=== PATIENT | male | born 2000 | race Caucasian/White ===

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

== ENCOUNTER 2020-03-13 15:48 | Emergency (ER) | payer MEDICAID ==
[2020-03-13 16:16] VITALS: BP 131/80; O2SAT 98
[2020-03-13] MEDS ORDERED: TORAdol 30 mg Injection IV ONE (16:27)
--- NOTE | 2020-03-13 16:30 | ERPHSYRPT ---
- History of Present Illness Time Seen by Provider: 03/13/20 16:20 Historian: patient Patient Subjective Stated Complaint: pt states that it feels like someone is standing on his chest Triage Nursing Assessment: Pt walked into the ER, pt states that upon certain movements it feels as if someone is standing on his chest, vitals wnl, denies pain, pulses normal, doesn't appear to be in any distress Physician History: 19 years old male presented in the ER with chief complaint of chest pain with movements in certain directions since yesterday with progressive worsening with palpation and activity. Patient described this as a dull aching to sharp pain mild to moderate intensity and currently is improved and feels as if he has something standing on him at times. No cough fever chills or shortness of breath reported. Does not smoke. Does not have any history of drug abuse. Currently pain is much improved on its own. Timing/Duration: today, sudden, improved Activities at Onset: activity Quality: dullness, sharpness Location: central Chest Pain Radiation: no radiation Severity of Pain-Max: moderate Severity of Pain-Current: mild Modifying Factors: Improves With: movement, palpation Associated Symptoms: cough, No shortness of breath Prior Chest Pain/Cardiac Workup: no prior chest pain, no prior cardiac workup Nitro Today/Relief: no nitro taken today Aspirin Treatment Today: no aspirin today Allergies/Adverse Reactions: No Known Drug Allergies Allergy (Verified 03/13/20 16:17) Home Medications: Sertraline HCl 100 mg PO DAILY 02/10/18 [History] Hx Tetanus, Diphtheria Vaccination/Date Given: Yes Hx Influenza Vaccination/Date Given: No Hx Pneumococcal Vaccination/Date Given: No Travel Risk - International Travel Have you traveled outside of the country in past 3 weeks: No Have you or anyone close to you been diagnosed with or: No Do your reside in a community with a known COVID-19 case?: Yes If Yes where:: [place] - Coronavirus Screening Has patient experienced Coronavirus symptoms: No - Review of Systems Constitutional: No Symptoms Eyes: No Symptoms Ears, Nose, & Throat: No Symptoms Respiratory: Cough Cardiac: Chest Pain Abdominal/Gastrointestinal: No Symptoms Musculoskeletal: No Symptoms Skin: No Symptoms Neurological: No Symptoms Psychological: No Symptoms Endocrine: No Symptoms Hematologic/Lymphatic: No Symptoms Immunological/Allergic: No Symptoms - Past Medical History Pertinent Past Medical History: Yes Neurological History: No Pertinent History ENT History: No Pertinent History Cardiac History: No Pertinent History Respiratory History: No Pertinent History Endocrine Medical History: No Pertinent History Musculoskeletal History: No Pertinent History GI Medical History: No Pertinent History History: No Pertinent History Psycho-Social History: Depression Male Reproductive Disorders: No Pertinent History - Past Surgical History Past Surgical History: Yes Neuro Surgical History: No Pertinent History Cardiac: No Pertinent History Respiratory: No Pertinent History Gastrointestinal: No Pertinent History Genitourinary: No Pertinent History Musculoskeletal: No Pertinent History Male Surgical History: No Pertinent History Other Surgical History: tendon repair in right pinky - Social History Smoking Status: Never smoker Exposure to second hand smoke: No Drug Use: none Patient Lives Alone: No - Nursing Vital Signs Nursing Vital Signs: Initial Vital Signs Temperature 98.2 F 03/13/20 16:10 Pulse Rate 87 03/13/20 16:10 Respiratory Rate 24 03/13/20 16:10 Blood Pressure 131/80 03/13/20 16:10 O2 Sat by Pulse Oximetry 98 03/13/20 16:10 Pain Scale Pain Intensity 0 - Physical Exam General Appearance: no apparent distress Eye Exam: PERRL/EOMI, eyes nml inspection Ears, Nose, Throat Exam: normal ENT inspection, TMs normal, pharynx normal Neck Exam: normal inspection, non-tender, supple, full range of motion Respiratory Exam: normal breath sounds, chest tenderness (Anterior chest wall), lungs clear, airway intact, No respiratory distress Cardiovascular Exam: regular rate/rhythm, normal heart sounds, normal peripheral pulses Gastrointestinal/Abdomen Exam: soft, normal bowel sounds, No tenderness Back Exam: normal inspection, normal range of motion Neurologic Exam: alert, oriented x 3, cooperative, personal care aid II-XII nml as tested, normal mood/affect Skin Exam: normal color SpO2 Interpretation: normal SpO2: 98 O2 Delivery: Room Air - Course Nursing assessment & vital signs reviewed: Yes EKG Interpreted by Me: RATE (84), Sinus Rhythm, NORMAL AXIS, NORMAL INTERVALS, NORMAL QRS Ordered Tests: Active Orders 24 hr Category Date Time Status Isolation, Initiate & Maintain Q4H Care 03/13/20 16:16 Active CHEST 1 VIEW (PORTABLE) Stat Exams 03/13/20 16:27 Taken CBC W DIFF Stat Lab 03/13/20 16:47 Completed CMP Routine Lab 03/13/20 16:47 Completed TROPONIN Q3H Lab 03/13/20 16:47 Completed TROPONIN Q3H Lab 03/13/20 19:30 Ordered TROPONIN Q3H Lab 03/13/20 22:30 Ordered TROPONIN Q3H Lab 03/14/20 01:30 Ordered TROPONIN Q3H Lab 03/14/20 04:30 Ordered Medication Summary Discontinued Medications Generic Name Dose Route Start Last Admin Trade Name Freq PRN Reason Stop Dose Admin Ketorolac Tromethamine 30 mg 03/13/20 16:27 03/13/20 16:33 Toradol 30 Mg Injection IV 03/13/20 16:28 30 mg STAT ONE Administration Ketorolac Tromethamine Confirm 03/13/20 16:32 Toradol 30 Mg Injection Administered 03/13/20 16:33 Dose 30 mg .ROUTE .[employer]-MED ONE Lab/Rad Data: Laboratory Result Diagrams 03/13/20 16:47 03/13/20 16:47 Laboratory Results 03/13/20 03/13/20 Range/Units 16:47 16:47 WBC 8.5 (4.0-10.5) K/mm3 RBC 5.15 (4.1-5.6) M/mm3 Hgb 14.5 (12.5-18.0) gm/dl Hct 43.9 (42-50) % MCV 85.2 (78-100) fl MCH 28.2 (26-32) pg MCHC 33.0 (32-36) g/dl RDW 14.3 H (11.5-14.0) % Plt Count 299 (150-450) K/mm3 MPV 10.3 (7.5-11.0) fl Gran % 59.5 (36.0-66.0) % Eos # (Auto) 0.30 (0-0.5) Absolute Lymphs (auto) 2.30 (1.0-4.6) Absolute Monos (auto) 0.80 (0.0-1.3) Lymphocytes % 27.0 (24.0-44.0) % Monocytes % 9.4 (0.0-12.0) % Eosinophils % 3.5 (0.00-5.0) % Basophils % 0.6 (0.0-0.4) % Absolute Granulocytes 5.06 (1.4-6.9) Basophils # 0.05 (0-0.4) Sodium 141 (137-145) mmol/L Potassium 3.8 (3.5-5.1) mmol/L Chloride 105 (98-107) mmol/L Carbon Dioxide 28 (22-30) mmol/L Anion Gap 11.6 (5-15) MEQ/L BUN 13 (9-20) mg/dL Creatinine 0.61 L (0.66-1.25) mg/dL Estimated GFR > 60.0 ML/MIN Glucose 99 (74-106) mg/dL Calcium 9.5 (8.4-10.2) mg/dL Total Bilirubin 0.40 (0.2-1.3) mg/dL AST 29 (17-59) U/L ALT 46 (0-50) U/L Alkaline Phosphatase 77 (38-126) U/L Troponin I < 0.012 (0.000-0.034) ng/mL Serum Total Protein 7.5 (6.3-8.2) g/dL Albumin 4.1 (3.5-5.0) g/dL - Progress Progress: improved, re-examined Air Movement: good Progress Note: 03/13/20 18:08 19 years old is evaluated for reproducible chest pain across the anterior wall. EKG is normal sinus rhythm with no acute ST or T wave changes. Negative troponins. Unremarkable work-up. Lungs bilateral clear to auscultation. Chest x-ray did not show any focal consolidation. His pain is more of musculoskeletal and is improved after giving Toradol. He is advised to take Tylenol ibuprofen as needed. Do not think he needs any further work-up. Does not have any sick contact or any other signs of COVID infection. Discussed signs symptoms of worsening needing return to ER which he seems understanding. Stable for discharge. Blood Culture(s) Obtained: No Antibiotics given: No Counseled pt/family regarding: lab results, diagnosis, need for follow-up, rad results - Departure Departure Disposition: Home Clinical Impression: Chest wall pain Condition: Stable Critical Care Time: No Referrals: DICK MULLINS MD [Primary Care Provider] - Follow Up with PCP/3 days Instructions: Atypical Chest Pain, Chest Pain (DC) Additional Instructions: Take Tylenol/ibuprofen as needed. Follow-up with primary care for reevaluation. Return to ER for worsening chest pain, difficulty breathing, fever chills/cough etc.
[2020-03-13] MEDS ORDERED: TORAdol 30 mg Injection ONE (16:32)
[2020-03-13 16:47] LABS: Absolute Neutrophil Ct (ANC) 5.06 (1.4-6.9); BASOPHIL % 0.6 % (0.0-0.4); Basophil (Absolute #) 0.05 (0-0.4); Eosinophil % 3.5 % (0.00-5.0); Hematocrit 43.9 % (42-50); Hemoglobin 14.5 gm/dl (12.5-18.0); Mean Cell Volume 85.2 fl (78-100); Mean Corpuscular Hemoglobin 28.2 pg (26-32); Mean Platelet Volume 10.3 fl (7.5-11.0); Monocytes % 9.4 % (0.0-12.0); Neutrophil % 59.5 % (36.0-66.0); Platelet Count 299 K/mm3 (150-450); Red Blood Count 5.15 M/mm3 (4.1-5.6); Red Cell Distribution Width 14.3 % (11.5-14.0); White Blood Count 8.5 K/mm3 (4.0-10.5)
[2020-03-13 17:12] LABS: ALBUMIN 4.1 g/dL (3.5-5.0); ALKALINE PHOSPHATASE 77 U/L (38-126); ANION GAP 11.6 MEQ/L (5-15); BLOOD UREA NITROGEN 13 mg/dL (9-20); CHLORIDE 105 mmol/L (98-107); Calcium 9.5 mg/dL (8.4-10.2); Carbon Dioxide 28 mmol/L (22-30); Creatinine 1 0.61 mg/dL (0.66-1.25); Glucose 99 mg/dL (74-106); Potassium 3.8 mmol/L (3.5-5.1); SGOT/AST 29 U/L (17-59); SGPT/ALT 46 U/L (0-50); SODIUM 141 mmol/L (137-145); TROPONIN < 0.012 ng/mL (0.000-0.034); Total Protein 7.5 g/dL (6.3-8.2)
[2020-03-13 18:02] VITALS: PULSE 75
--- NOTE | 2020-03-13 19:58 | XRAY ---
Indication: Chest pain and cough. Comparison: None Portable chest demonstrates normal heart, lungs, and bony thorax.
== END 2020-03-13 18:06 | disposition home or self-care (01) ==
LOC: ED 15:48
DX: R07.89 Other chest pain (principal)
CPT/HCPCS: 36000; 36415; 71045; 80053; 84484; 85025; 93005; 96372; 99284; J1885

== ENCOUNTER 2022-04-29 10:35 | Emergency (ER) | payer MEDICAID ==
[2022-04-29] MEDS ORDERED: ZOFRAN ODT 4 MG PO ONE (11:33)
[2022-04-29] MEDS ORDERED: ZOFRAN ODT 4 MG ONE (11:36)
--- NOTE | 2022-04-29 11:38 | ERPHSYRPT ---
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 Physician History: 21 yo wm w N-vomiting since 4:00AM. Pt denies abdominal pain/diarrhea/dysuria/hematuria. He has had a mild AG wo cough/coryza/ST. Timing/Duration: other (4:00AM) Activities at Onset: rest Quality: other (No pain) Pain Radiation: no radiation Severity of Pain-Max: none Severity of Pain-Current: none Modifying Factors: Improves With: vomiting Associated Symptoms: neck pain Previous symptoms: no prior history Allergies/Adverse Reactions: No Known Drug Allergies Allergy (Verified 03/13/20 16:17) Home Medications: Trazodone HCl 100 mg PO HS 04/29/22 [History] Hx Tetanus, Diphtheria Vaccination/Date Given: Yes Hx Influenza Vaccination/Date Given: No Hx Pneumococcal Vaccination/Date Given: No Immunizations Up to Date: Yes Travel Risk - International Travel Have you traveled outside of the country in past 3 weeks: No - Coronavirus Screening Are you exhibiting any of the following symptoms?: No Close contact with a COVID-19 positive Pt in past 14-21 Days: No - Vaccine Status Have you recieved a Covid-19 vaccination: Yes [employer] Representative: Moderna - Vaccination Dates Date of 2cond Vaccination (if applicable): 2020 - Review of Systems Constitutional: No Symptoms Eyes: No Symptoms Ears, Nose, & Throat: No Symptoms Respiratory: No Symptoms Cardiac: No Symptoms Abdominal/Gastrointestinal: No Symptoms, Nausea Genitourinary Symptoms: No Symptoms Musculoskeletal: No Symptoms Skin: No Symptoms Neurological: No Symptoms, Headache Psychological: No Symptoms Endocrine: No Symptoms Hematologic/Lymphatic: No Symptoms Immunological/Allergic: No Symptoms - Past Medical History Pertinent Past Medical History: Yes Neurological History: No Pertinent History ENT History: No Pertinent History Cardiac History: No Pertinent History Respiratory History: No Pertinent History Endocrine Medical History: No Pertinent History Musculoskeletal History: No Pertinent History GI Medical History: No Pertinent History History: No Pertinent History Psycho-Social History: Depression Male Reproductive Disorders: No Pertinent History - Past Surgical History Past Surgical History: Yes Neuro Surgical History: No Pertinent History Cardiac: No Pertinent History Respiratory: No Pertinent History Gastrointestinal: No Pertinent History Genitourinary: No Pertinent History Musculoskeletal: No Pertinent History Male Surgical History: No Pertinent History Other Surgical History: tendon repair in right pinky - Social History Smoking Status: Never smoker Exposure to second hand smoke: No Drug Use: none Patient Lives Alone: No Significant Family History: no pertinent family hx - Nursing Vital Signs Nursing Vital Signs: Initial Vital Signs Temperature 97.1 F 04/29/22 10:50 Pulse Rate 80 04/29/22 10:50 Respiratory Rate 20 04/29/22 10:50 Blood Pressure 150/85 04/29/22 10:50 O2 Sat by Pulse Oximetry 96 04/29/22 10:50 Pain Scale Pain Intensity 4 Hypertensive - Physical Exam General Appearance: no apparent distress Eye Exam: PERRL/EOMI, eyes nml inspection Ears, Nose, Throat Exam: normal ENT inspection, TMs normal, pharynx normal, moist mucous membranes Neck Exam: normal inspection, non-tender, supple, full range of motion, No meningismus, No mass, No Brudzinski, No Kernig's Respiratory Exam: normal breath sounds, lungs clear, airway intact Cardiovascular Exam: regular rate/rhythm, normal heart sounds, normal peripheral pulses, capillary refill <2 sec, No murmur Gastrointestinal/Abdomen Exam: soft, normal bowel sounds, other (Morbidly obese), No tenderness, No distention Back Exam: normal inspection, normal range of motion Extremity Exam: normal inspection, normal range of motion Neurologic Exam: alert, oriented x 3, cooperative, adjudication specialist II-XII nml as tested, normal mood/affect, nml cerebellar function, nml station & gait, sensation nml Skin Exam: normal color, warm, dry Lymphatic Exam: No adenopathy SpO2 Interpretation: normal SpO2: 96 O2 Delivery: Room Air - Course Nursing assessment & vital signs reviewed: Yes Ordered Tests: Medication Summary Discontinued Medications Generic Name Dose Route Start Last Admin Trade Name Freq PRN Reason Stop Dose Admin Ondansetron HCl 8 mg 04/29/22 11:33 04/29/22 11:36 Zofran 4 Mg/Udtablet Orally Disintegrating PO 04/29/22 11:34 8 mg STAT ONE Administration Ondansetron HCl Confirm 04/29/22 11:36 Zofran 4 Mg/Udtablet Orally Disintegrating Administered 04/29/22 11:37 Dose 8 mg .ROUTE .STK-MED ONE Lab/Rad Data: Laboratory Results 04/29/22 Range/Units 11:28 Influenza Type A Ag NEGATIVE (NEGATIVE) Influenza Type B Ag NEGATIVE (NEGATIVE) RSV (PCR) NEGATIVE (Negative) SARS-CoV-2 (PCR) NEGATIVE (NEGATIVE) - Progress Progress: improved Progress Note: 04/29/22 13:02 8mg Zofran ODT/Pt able to hold down fluids wo difficulty. No abdominal pain during stay. 04/29/22 17:24 Counseled pt/family regarding: lab results, diagnosis, need for follow-up - Departure Departure Disposition: Home Clinical Impression: Nausea & vomiting Condition: Stable Critical Care Time: No Referrals: DICK MULLINS MD [Primary Care Provider] - Follow up/PCP as directed Instructions: Nausea and Vomiting, Adult (DC) Additional Instructions: Fluids/Rest Zofran for nausea/vomiting Return to ER for increasing abdominal pain, temperature greater than 100.5, or inability to hold down fluids Forms: Work/School Release Form Prescriptions: Ondansetron ODT 4 MG [Zofran Odt 4 mg] 4 mg PO Q6H PRN PRN #10 tablet PRN Reason: Nausea
[2022-04-29 11:49] VITALS: BP 142/78; PULSE 76
[2022-04-29 12:30] LABS: INFLUENZA A NEGATIVE (NEGATIVE); INFLUENZA B NEGATIVE (NEGATIVE); RESPIRATORY SYNCTIAL VIRUS NEGATIVE (Negative); SARS-CoV-2 Xpert Express NEGATIVE (NEGATIVE)
[2022-04-29 13:06] VITALS: O2SAT 96
== END 2022-04-29 13:14 | disposition home or self-care (01) ==
LOC: ED 10:35
DX: R11.2 Nausea with vomiting, unspecified (principal); R51.9 Headache, unspecified
CPT/HCPCS: 0241U; 99283; Q0162

== ENCOUNTER 2022-08-24 22:25 | Emergency (ER) | payer MEDICAID ==
[2022-08-24 22:41] VITALS: BP 143/89; O2SAT 98
--- NOTE | 2022-08-24 22:56 | ERPHSYRPT ---
- History of Present Illness Time Seen by Provider: 08/24/22 22:40 Source: patient Exam Limitations: no limitations Patient Subjective Stated Complaint: pt states "I started coughing and sore throat yesterday." Triage Nursing Assessment: pt ambulatory to bed by self, pt alert and oriented x3, pt c/o sore throat, cough, nasal congestion since yesterday, pt denies fever, pt is afebrile at this time, lung sounds diminished in lower bilateral lobes posteriorly Physician History: Patient is a 21-year-old male who was complains of sore throat cough with pain, chest pain with a deep breath. The symptoms started yesterday. He denies any fever chills or sweats. He has had some nausea but no vomiting. Timing/Duration: yesterday Cough Quality/Degree: productive cough Possible Cause: occasional episodes Modifying Factors: Improves With: coughing, deep breath Associated Symptoms: chest pain/soreness, cough, shortness of breath, sore throat, No fever, No chills, No nasal congestion, No nasal drainage Allergies/Adverse Reactions: No Known Drug Allergies Allergy (Verified 08/24/22 22:33) Home Medications: Trazodone HCl 100 mg PO HS 04/29/22 [History] Hx Tetanus, Diphtheria Vaccination/Date Given: Yes Hx Influenza Vaccination/Date Given: No Hx Pneumococcal Vaccination/Date Given: No Travel Risk - International Travel Have you traveled outside of the country in past 3 weeks: No - Coronavirus Screening Are you exhibiting any of the following symptoms?: Yes Symptoms: Cough: New Onset Close contact with a COVID-19 positive Pt in past 14-21 Days: No - Vaccine Status Have you recieved a Covid-19 vaccination: Yes 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 - Vaccination Dates Date of 2cond Vaccination (if applicable): 2020 - Review of Systems Constitutional: No Fever, No Chills Eyes: No Symptoms Ears, Nose, & Throat: No Symptoms, Throat Pain, Painful Swallowing Respiratory: Cough, No Dyspnea Cardiac: Chest Pain (Pleuritic), No Edema, No Syncope Abdominal/Gastrointestinal: No Abdominal Pain, No Nausea, No Vomiting, No Diarrhea Genitourinary Symptoms: No Dysuria Musculoskeletal: No Back Pain, No Neck Pain Skin: No Rash Neurological: No Dizziness, No Focal Weakness, No Sensory Changes Psychological: No Symptoms Endocrine: No Symptoms All Other Systems: Reviewed and Negative - Past Medical History Pertinent Past Medical History: Yes Neurological History: No Pertinent History ENT History: No Pertinent History Cardiac History: No Pertinent History Respiratory History: No Pertinent History Endocrine Medical History: No Pertinent History Musculoskeletal History: No Pertinent History GI Medical History: No Pertinent History History: No Pertinent History Psycho-Social History: Depression Male Reproductive Disorders: No Pertinent History - Past Surgical History Past Surgical History: Yes Neuro Surgical History: No Pertinent History Cardiac: No Pertinent History Respiratory: No Pertinent History Gastrointestinal: No Pertinent History Genitourinary: No Pertinent History Musculoskeletal: No Pertinent History Male Surgical History: No Pertinent History Other Surgical History: tendon repair in right pinky - Social History Smoking Status: Former smoker Exposure to second hand smoke: No Drug Use: none Patient Lives Alone: No Significant Family History: no pertinent family hx - Nursing Vital Signs Nursing Vital Signs: Initial Vital Signs Temperature 98.0 F 08/24/22 22:34 Pulse Rate 111 H 08/24/22 22:34 Respiratory Rate 20 08/24/22 22:34 Blood Pressure 143/89 08/24/22 22:34 O2 Sat by Pulse Oximetry 98 08/24/22 22:34 Pain Scale Pain Intensity 3 - Physical Exam General Appearance: mild distress, alert Eye Exam: PERRL/EOMI, eyes nml inspection Ears, Nose, Throat Exam: normal ENT inspection, TMs normal, pharynx normal, moist mucous membranes Neck Exam: normal inspection, non-tender, supple, full range of motion Respiratory Exam: normal breath sounds, lungs clear, No respiratory distress Cardiovascular Exam: regular rate/rhythm, normal heart sounds Gastrointestinal/Abdomen Exam: soft, No tenderness Back Exam: normal inspection, No CVA tenderness, No vertebral tenderness Extremity Exam: normal inspection, normal range of motion Neurologic Exam: alert, oriented x 3, cooperative, normal mood/affect, sensation nml, No motor deficits Skin Exam: normal color, warm, dry, No rash Lymphatic Exam: No adenopathy SpO2: 98 - Course Nursing assessment & vital signs reviewed: Yes - Radiology Exams Chest X-ray Interpretation: Reviewed by me, Negative Ordered Tests: Active Orders 24 hr Category Date Time Status CHEST 1 VIEW (PORTABLE) Stat Exams 08/24/22 22:51 Taken Lab/Rad Data: Laboratory Results 08/24/22 08/24/22 Range/Units 22:40 22:40 Influenza Type A Ag NEGATIVE (NEGATIVE) Influenza Type B Ag NEGATIVE (NEGATIVE) RSV (PCR) NEGATIVE (Negative) SARS-CoV-2 (PCR) POSITIVE A (NEGATIVE) Group A Strep Antibody NOT DETECTED (NEGATIVE) - Progress Progress: unchanged Air Movement: good Blood Culture(s) Obtained: No Antibiotics given: No - Departure Departure Disposition: Home Clinical Impression: COVID Condition: Stable Critical Care Time: No Referrals: DICK MULLINS MD [Primary Care Provider] - Follow up/PCP as directed Instructions: COVID-19 (DC) Prescriptions: Nirmatrelvir/Ritonavir [Paxlovid 2X150 mg-100 mg (Eua)] 1 each PO BID 5 Days #10 tablet
[2022-08-24 23:18] LABS: INFLUENZA A NEGATIVE (NEGATIVE); INFLUENZA B NEGATIVE (NEGATIVE); RESPIRATORY SYNCTIAL VIRUS NEGATIVE (Negative)
[2022-08-24 23:25] LABS: SARS-CoV-2 Xpert Express POSITIVE (NEGATIVE)
[2022-08-24 23:42] VITALS: PULSE 69
--- NOTE | 2022-08-25 08:09 | XRAY ---
Indication: Cough, pleurisy, and sore throat. Comparison: March 13, 2020 Portable chest remains inflated and clear. Heart and mediastinal structures within normal limits. Bony thorax intact. Impression: Continued nonacute chest.
== END 2022-08-24 23:53 | disposition home or self-care (01) ==
LOC: ED 22:25
DX: U07.1 COVID-19 (principal); R05.1 Acute cough; J02.9 Acute pharyngitis, unspecified; R07.89 Other chest pain; R11.0 Nausea; Z79.899 Other long term (current) drug therapy
CPT/HCPCS: 0241U; 71045; 87651; 99283

== ENCOUNTER 2022-09-04 15:29 | Emergency (ER) | payer MEDICAID ==
[2022-09-04] MEDS ORDERED: MORPHINE SULFATE 4 MG INJ IV ONE (15:38)
[2022-09-04] MEDS ORDERED: BABY ASPIRIN 81 MG CHEW PO ONE (15:38)
[2022-09-04] MEDS ORDERED: Sodium Chloride 0.9% 1000 ML 1,000 ML IV SCH (15:45)
[2022-09-04] MEDS ORDERED: Zofran 4 MG/2 ML VIAL ONE (15:51)
[2022-09-04] MEDS ORDERED: BABY ASPIRIN 81 MG CHEW ONE (15:51)
[2022-09-04] MEDS ORDERED: Sodium Chloride 0.9% 1000 ML 1,000 ML ONE (15:52)
[2022-09-04] MEDS ORDERED: MORPHINE SULFATE 4 MG INJ ONE (15:52)
[2022-09-04] MEDS ORDERED: Zofran 4 MG/2 ML VIAL IV ONE (15:56)
[2022-09-04 16:00] LABS: Absolute Neutrophil Ct (ANC) 6.12 x10^3/uL (1.4-6.9); Basophil (Absolute #) 0.05 x10^3/uL (0-0.4); Eosinophil % 1.1 % (0.00-5.0); Eosinophil (Absolute #) 0.11 x10^3/uL (0-0.5); Hematocrit 42.1 % (42-50); Hemoglobin 13.3 g/dL (12.5-18.0); Lymphocyte (Absolute #) 2.79 x10^3/uL (1.0-4.6); Lymphocytes % 28.5 % (24.0-44.0); Mean Cell Volume 86.3 fL (78-100); Mean Corpuscular Hemoglobin 27.3 pg (26-32); Mean Corpuscular Hgb Concent. 31.6 g/dL (32-36); Mean Platelet Volume 10.1 fL (7.5-11.0); Monocyte (Absolute #) 0.68 x10^3/uL (0.0-1.3); Neutrophil % 62.6 % (36.0-66.0); Platelet Count 356 x10^3/uL (150-450); Red Blood Count 4.88 x10^6/uL (4.1-5.6); Red Cell Distribution Width 14.6 % (11.5-14.0); White Blood Count 9.8 x10^3/uL (4.0-10.5)
[2022-09-04 16:17] LABS: D-DIMER QUANTITATIVE 0.3 mg/L (0.0-0.50); INR 1.01 (0.8-3.0); PROTIME 10.7 SECONDS (9.4-12.5); PTT 26.2 SECONDS (25.1-36.5)
[2022-09-04 16:24] LABS: ALBUMIN 4.2 g/dL (3.5-5.0); ALKALINE PHOSPHATASE 94 U/L (38-126); ANION GAP 11.6 MEQ/L (5-15); BLOOD UREA NITROGEN 12 mg/dL (9-20); CHLORIDE 104 mmol/L (98-107); CK-Creatinine Phosphokinase 129 U/L (55-170); Calcium 9.2 mg/dL (8.4-10.2); Carbon Dioxide 27 mmol/L (22-30); Creatinine 1 0.63 mg/dL (0.66-1.25); EST GLOMERULAR FILTRATION RATE > 60.0 ML/MIN; Glucose 82 mg/dL (74-106); NT PRO BNP 32.4 pg/mL (0-450); Potassium 3.9 mmol/L (3.5-5.1); SGOT/AST 35 U/L (17-59); SGPT/ALT 39 U/L (0-50); SODIUM 139 mmol/L (137-145); Total Protein 7.9 g/dL (6.3-8.2)
--- NOTE | 2022-09-04 16:30 | XRAY ---
Indication: Chest pain. Short of breath. Comparison: August 24, 2022 Portable chest again demonstrates normal heart, lungs, and bony thorax.
[2022-09-04 17:13] VITALS: PULSE 79
--- NOTE | 2022-09-04 17:19 | ERPHSYRPT ---
- History of Present Illness Time Seen by Provider: 09/04/22 15:40 Patient Subjective Stated Complaint: Chest pain Triage Nursing Assessment: Patient ambulated back to ED and transferred self to bed. Patient A+O X 3. Patient's skin pink, warm and dry. Patient states he has been having chest pain on and off for the past 3 days. Patient states today he was at work and the pain got bad. Patient complains of chest pain that goes into back sharp pain 05/04. Patient also complains of being lightheaded and nauseated. Physician History: Patient is a 21-year-old male who presents with a complaint of chest pain for 3 days on and off. When he gets bad he also gets a headache. The pain is substernal and goes through to his back is intermittent and is not relieved by nitroglycerin is associated with some shortness of breath and some nausea but no vomiting or sweats. He recently had COVID and was treated with Paxlovid. Risk factors include smoking family history hyperlipidemia and hypertension. He is also under a great deal of stress since he is raising 2 children from his sister who is out of state with a new boyfriend. Timing/Duration: day(s) (3) Activities at Onset: none Quality: fullness, pressure, stabbing Location: substernal Chest Pain Radiation: back Nitro Today/Relief: 0.4 mg x 2, no relief Aspirin Treatment Today: no aspirin today Allergies/Adverse Reactions: No Known Drug Allergies Allergy (Verified 09/04/22 15:34) Home Medications: Trazodone HCl 100 mg PO HS 04/29/22 [History] Hx Tetanus, Diphtheria Vaccination/Date Given: Yes Hx Influenza Vaccination/Date Given: No Hx Pneumococcal Vaccination/Date Given: No Immunizations Up to Date: Yes Travel Risk - International Travel Have you traveled outside of the country in past 3 weeks: No - Coronavirus Screening Are you exhibiting any of the following symptoms?: No Close contact with a COVID-19 positive Pt in past 14-21 Days: No - Vaccine Status Have you recieved a Covid-19 vaccination: Yes 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 - Vaccination Dates Date of 2cond Vaccination (if applicable): 2020 - Review of Systems Constitutional: No Fever, No Chills Eyes: No Symptoms Ears, Nose, & Throat: No Symptoms Respiratory: No Cough, No Dyspnea Cardiac: No Chest Pain, No Edema, No Syncope Abdominal/Gastrointestinal: No Abdominal Pain, No Nausea, No Vomiting, No Diarrhea Genitourinary Symptoms: No Dysuria Musculoskeletal: No Back Pain, No Neck Pain Skin: No Rash Neurological: No Dizziness, No Focal Weakness, No Sensory Changes Psychological: No Symptoms Endocrine: No Symptoms All Other Systems: Reviewed and Negative - Past Medical History Pertinent Past Medical History: Yes Neurological History: No Pertinent History ENT History: No Pertinent History Cardiac History: No Pertinent History Respiratory History: No Pertinent History Endocrine Medical History: No Pertinent History Musculoskeletal History: No Pertinent History GI Medical History: No Pertinent History History: No Pertinent History Psycho-Social History: Depression Male Reproductive Disorders: No Pertinent History - Past Surgical History Past Surgical History: Yes Neuro Surgical History: No Pertinent History Cardiac: No Pertinent History Respiratory: No Pertinent History Gastrointestinal: No Pertinent History Genitourinary: No Pertinent History Musculoskeletal: No Pertinent History Male Surgical History: No Pertinent History Other Surgical History: tendon repair in right pinky - Social History Smoking Status: Former smoker Exposure to second hand smoke: No Drug Use: none Patient Lives Alone: No Significant Family History: no pertinent family hx - Nursing Vital Signs Nursing Vital Signs: Initial Vital Signs Temperature 97.3 F 09/04/22 15:37 Pulse Rate 91 H 09/04/22 15:37 Respiratory Rate 14 09/04/22 15:37 Blood Pressure 136/89 09/04/22 15:37 O2 Sat by Pulse Oximetry 100 09/04/22 15:37 Pain Scale Pain Intensity 5 - Physical Exam General Appearance: no apparent distress, alert Eye Exam: PERRL/EOMI, eyes nml inspection Ears, Nose, Throat Exam: normal ENT inspection, moist mucous membranes Neck Exam: normal inspection, non-tender, supple, full range of motion Respiratory Exam: normal breath sounds, lungs clear, No respiratory distress Cardiovascular Exam: regular rate/rhythm, normal heart sounds Gastrointestinal/Abdomen Exam: soft, No tenderness, No mass Back Exam: normal inspection, No CVA tenderness, No vertebral tenderness Extremity Exam: normal inspection, normal range of motion Neurologic Exam: alert, oriented x 3, cooperative, normal mood/affect, sensation nml, No motor deficits Skin Exam: normal color, warm, dry SpO2: 95 - Course Nursing assessment & vital signs reviewed: Yes EKG Interpreted by Me: RATE (97), NORMAL AXIS, NORMAL INTERVALS, NORMAL QRS, Non-specific ST Changes - Radiology Exams Chest X-ray Interpretation: Interpreted by me, Negative Ordered Tests: Active Orders 24 hr Category Date Time Status EKG-ER Only STAT Care 09/04/22 15:38 Active IV Insertion STAT Care 09/04/22 15:38 Active CHEST 1 VIEW (PORTABLE) Stat Exams 09/04/22 15:38 Completed CBC W DIFF Stat Lab 09/04/22 15:55 Completed CK-Creatinine Phosphokinase Stat Lab 09/04/22 15:55 Completed CMP Stat Lab 09/04/22 15:55 Completed D-DIMER QUANTITATIVE Stat Lab 09/04/22 15:55 Completed NT PRO BNP Stat Lab 09/04/22 15:55 Completed PROTIME WITH INR Stat Lab 09/04/22 15:55 Completed PTT Stat Lab 09/04/22 15:55 Completed TROPONIN Q4H Lab 09/04/22 15:55 Completed TROPONIN Q4H Lab 09/04/22 19:45 Ordered TROPONIN Q4H Lab 09/04/22 23:45 Ordered Medication Summary Generic Name Dose Route Start Last Admin Trade Name Freq PRN Reason Stop Dose Admin Sodium Chloride 1,000 mls @ 100 mls/hr 09/04/22 15:45 09/04/22 15:57 Sodium Chloride 0.9% 1000 Ml IV 10/04/22 15:44 100 mls/hr .Q10H ALIYA Administration Discontinued Medications Generic Name Dose Route Start Last Admin Trade Name Freq PRN Reason Stop Dose Admin Aspirin 324 mg 09/04/22 15:38 09/04/22 15:53 Aspirin 81 Mg Tab.Chew PO 09/04/22 15:39 324 mg STAT ONE Administration Aspirin Confirm 09/04/22 15:51 Aspirin 81 Mg Tab.Chew Administered 09/04/22 15:52 Dose 324 mg .ROUTE .STK-MED ONE Morphine Sulfate 4 mg 09/04/22 15:38 09/04/22 15:57 Morphine Sulfate 4 Mg/Ml Injection IV 09/04/22 15:39 4 mg STAT ONE Administration Morphine Sulfate Confirm 09/04/22 15:52 Morphine Sulfate 4 Mg/Ml Injection Administered 09/04/22 15:53 Dose 4 mg .ROUTE .STK-MED ONE Ondansetron HCl Confirm 09/04/22 15:51 Ondansetron Hcl 4 Mg/2 Ml Vial Administered 09/04/22 15:52 Dose 4 mg .ROUTE .STK-MED ONE Ondansetron HCl 4 mg 09/04/22 15:56 09/04/22 15:56 Ondansetron Hcl 4 Mg/2 Ml Vial IV 09/04/22 15:57 4 mg STAT ONE Administration Lab/Rad Data: Laboratory Result Diagrams 09/04/22 15:55 09/04/22 15:55 Laboratory Results 09/04/22 09/04/22 09/04/22 Range/Units 15:55 15:55 15:55 WBC (4.0-10.5) x10^3/uL RBC (4.1-5.6) x10^6/uL Hgb (12.5-18.0) g/dL Hct (42-50) % MCV (78-100) fL MCH (26-32) pg MCHC (32-36) g/dL RDW (11.5-14.0) % Plt Count (150-450) x10^3/uL MPV (7.5-11.0) fL Gran % (36.0-66.0) % Immature Gran % (Auto) (0.00-0.4) % Nucleat RBC Rel Count (0.00-0.1) % Eos # (Auto) (0-0.5) x10^3/uL Immature Gran # (Auto) (0.00-0.03) x10^3u/L Absolute Lymphs (auto) (1.0-4.6) x10^3/uL Absolute Monos (auto) (0.0-1.3) x10^3/uL Absolute Nucleated RBC (0.00-0.01) x10^3u/L Lymphocytes % (24.0-44.0) % Monocytes % (0.0-12.0) % Eosinophils % (0.00-5.0) % Basophils % (0.0-0.4) % Absolute Granulocytes (1.4-6.9) x10^3/uL Basophils # (0-0.4) x10^3/uL PT 10.7 (9.4-12.5) SECONDS INR 1.01 (0.8-3.0) APTT 26.2 (25.1-36.5) SECONDS D-Dimer 0.30 (0.0-0.50) mg/L Sodium 139 (137-145) mmol/L Potassium 3.9 (3.5-5.1) mmol/L Chloride 104 (98-107) mmol/L Carbon Dioxide 27 (22-30) mmol/L Anion Gap 11.6 (5-15) MEQ/L BUN 12 (9-20) mg/dL Creatinine 0.63 L (0.66-1.25) mg/dL Estimated GFR > 60.0 ML/MIN Glucose 82 (74-106) mg/dL Calcium 9.2 (8.4-10.2) mg/dL Total Bilirubin 0.50 (0.2-1.3) mg/dL AST 35 (17-59) U/L ALT 39 (0-50) U/L Alkaline Phosphatase 94 (38-126) U/L Creatine Kinase 129 (55-170) U/L Troponin I < 0.012 (0.000-0.034) ng/mL NT-Pro-B Natriuret Pep 32.4 (0-450) pg/mL Serum Total Protein 7.9 (6.3-8.2) g/dL Albumin 4.2 (3.5-5.0) g/dL 09/04/22 Range/Units 15:55 WBC 9.8 (4.0-10.5) x10^3/uL RBC 4.88 (4.1-5.6) x10^6/uL Hgb 13.3 (12.5-18.0) g/dL Hct 42.1 (42-50) % MCV 86.3 (78-100) fL MCH 27.3 (26-32) pg MCHC 31.6 L (32-36) g/dL RDW 14.6 H (11.5-14.0) % Plt Count 356 (150-450) x10^3/uL MPV 10.1 (7.5-11.0) fL Gran % 62.6 (36.0-66.0) % Immature Gran % (Auto) 0.3 (0.00-0.4) % Nucleat RBC Rel Count 0.0 (0.00-0.1) % Eos # (Auto) 0.11 (0-0.5) x10^3/uL Immature Gran # (Auto) 0.03 (0.00-0.03) x10^3u/L Absolute Lymphs (auto) 2.79 (1.0-4.6) x10^3/uL Absolute Monos (auto) 0.68 (0.0-1.3) x10^3/uL Absolute Nucleated RBC 0.00 (0.00-0.01) x10^3u/L Lymphocytes % 28.5 (24.0-44.0) % Monocytes % 7.0 (0.0-12.0) % Eosinophils % 1.1 (0.00-5.0) % Basophils % 0.5 (0.0-0.4) % Absolute Granulocytes 6.12 (1.4-6.9) x10^3/uL Basophils # 0.05 (0-0.4) x10^3/uL PT (9.4-12.5) SECONDS INR (0.8-3.0) APTT (25.1-36.5) SECONDS D-Dimer (0.0-0.50) mg/L Sodium (137-145) mmol/L Potassium (3.5-5.1) mmol/L Chloride (98-107) mmol/L Carbon Dioxide (22-30) mmol/L Anion Gap (5-15) MEQ/L BUN (9-20) mg/dL Creatinine (0.66-1.25) mg/dL Estimated GFR ML/MIN Glucose (74-106) mg/dL Calcium (8.4-10.2) mg/dL Total Bilirubin (0.2-1.3) mg/dL AST (17-59) U/L ALT (0-50) U/L Alkaline Phosphatase (38-126) U/L Creatine Kinase (55-170) U/L Troponin I (0.000-0.034) ng/mL NT-Pro-B Natriuret Pep (0-450) pg/mL Serum Total Protein (6.3-8.2) g/dL Albumin (3.5-5.0) g/dL - Progress Progress: improved Air Movement: good Blood Culture(s) Obtained: No Antibiotics given: No - Departure Departure Disposition: Home Clinical Impression: Chest pain, Stress reaction Condition: Stable Critical Care Time: No Referrals: DICK MULLINS MD [Primary Care Provider] - Follow up/PCP as directed Instructions: Chest Pain (DC) Prescriptions: Lorazepam 1 mg [Ativan 1 MG] 1 mg PO Q8H PRN PRN #8 tablet PRN Reason: Anxiety
[2022-09-04 18:20] VITALS: BP 143/79
[2022-09-04 18:23] VITALS: O2SAT 95
== END 2022-09-04 18:53 | disposition home or self-care (01) ==
LOC: ED 15:29
DX: F43.9 Reaction to severe stress, unspecified (principal); R07.9 Chest pain, unspecified; R51.9 Headache, unspecified; Z63.8 Other specified problems related to primary support group; Z86.16 Personal history of COVID-19
CPT/HCPCS: 36000; 36415; 71045; 80053; 82550; 83880; 84484; 85025; 85379; 85610; 85730; 93005; 96374; 96375; 99284; J2270; J2405; A9270-GY

== ENCOUNTER 2022-12-15 16:38 | Emergency (ER) | payer MEDICAID ==
[2022-12-15] MEDS ORDERED: XYLOCAINE 1% HCL 20 ML MDV IJ ONE (16:39)
[2022-12-15 16:50] VITALS: O2SAT 98
[2022-12-15] MEDS ORDERED: TORAdol 30 mg Injection IM ONE (17:02)
[2022-12-15] MEDS ORDERED: TORAdol 30 mg Injection ONE (17:07)
[2022-12-15 17:25] LABS: Appearance Clear (Clear); Bacteria None Seen /HPF (None Seen); Bilirubin Negative (Negative); Blood Negative (Negative); Epithelial Cells None Seen /HPF (None Seen); Glucose, Urine Negative (Negative); Hyaline Casts NONE SEEN /LPF (0-2); Ketones Negative (Negative); Leukocyte Esterase Negative (Negative); Nitrite Negative (Negative); Ph 6.5 (4.6-8.0); Protein,Urine Dip Negative (Negative); RBC 0-2 /HPF (0-5); WBC 0-2 /HPF (0-5)
[2022-12-15 17:27] LABS: ADD URINE CULTURE? NO (NO)
--- NOTE | 2022-12-15 17:48 | ERPHSYRPT ---
- History of Present Illness Source: patient Exam Limitations: no limitations Patient Subjective Stated Complaint: here for testicular pain since this am, worse when stand . no injury Triage Nursing Assessment: pt alert, wakled in , resp easy, skin w/d/p. abd soft, denies penile discharge or burning with urination Timing/Duration: today, hour(s) (6) Activites at Onset: sleep Quality: sharpness Onset Location: left testicle Severity of Pain-Max: moderate Severity of Pain-Current: moderate Modifying Factors: Worsens With: position, walking Associated Symptoms: denies symptoms Prior abdominal problems: none Hx Tetanus, Diphtheria Vaccination/Date Given: No Hx Influenza Vaccination/Date Given: Yes Hx Pneumococcal Vaccination/Date Given: No Immunizations Up to Date: Yes <MILLY COOPER - Last Filed: 12/15/22 17:43> <MARY AMIN - Last Filed: 12/15/22 18:49> - History of Present Illness Time Seen by Provider: 12/15/22 16:51 Physician History: 42 years old morbidly obese male presented in the ER with chief complaint of testicular pain since 11 AM today when he woke up from sleep, dull aching to sharp, aggravated with standing and ambulation and better with lying down. Unable to tell whether there is a swelling in testicles. No urinary complaints. No history of STDs. No urethral discharge. No fever or chills reported. 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 - Vaccination Dates Date of 2cond Vaccination (if applicable): 2020 <MILLY COOPER - Last Filed: 12/15/22 17:43> - Past Medical History Pertinent Past Medical History: Yes Neurological History: No Pertinent History ENT History: No Pertinent History Cardiac History: No Pertinent History Respiratory History: No Pertinent History Endocrine Medical History: No Pertinent History Musculoskeletal History: No Pertinent History GI Medical History: No Pertinent History History: No Pertinent History Psycho-Social History: Depression Male Reproductive Disorders: No Pertinent History - Past Surgical History Past Surgical History: Yes Neuro Surgical History: No Pertinent History Cardiac: No Pertinent History Respiratory: No Pertinent History Gastrointestinal: No Pertinent History Genitourinary: No Pertinent History Musculoskeletal: No Pertinent History Male Surgical History: No Pertinent History Other Surgical History: tendon repair in right pinky - Social History Smoking Status: Former smoker Exposure to second hand smoke: No Drug Use: none Patient Lives Alone: No Significant Family History: no pertinent family hx <MILLY COOPER - Last Filed: 12/15/22 17:43> - Review of Systems Constitutional: No Symptoms Ears, Nose, & Throat: No Symptoms Respiratory: No Symptoms Cardiac: No Symptoms Abdominal/Gastrointestinal: No Symptoms Genitourinary Symptoms: Testicle Pain Musculoskeletal: No Symptoms Skin: No Symptoms Neurological: No Symptoms Psychological: No Symptoms Hematologic/Lymphatic: No Symptoms <MILLY COOPER - Last Filed: 12/15/22 17:43> - Physical Exam General Appearance: no apparent distress, alert Eye Exam: PERRL/EOMI Neck Exam: normal inspection, full range of motion Respiratory Exam: normal breath sounds, lungs clear Cardiovascular Exam: normal heart sounds, tachycardia Gastrointestinal/Abdomen Exam: soft, normal bowel sounds, No tenderness Male Genital Exam: testicular tenderness (L) (No swelling. Can get above the card.) Back Exam: normal inspection Extremity Exam: normal inspection, normal range of motion Neurologic Exam: alert, oriented x 3, cooperative Skin Exam: normal color SpO2 Interpretation: normal SpO2: 98 O2 Delivery: Room Air <MILLY COOPER - Last Filed: 12/15/22 17:43> - Nursing Vital Signs Nursing Vital Signs: Initial Vital Signs Temperature 97.8 F 12/15/22 16:49 Pulse Rate 118 H 12/15/22 16:49 Respiratory Rate 18 12/15/22 16:49 Blood Pressure 151/101 12/15/22 16:49 O2 Sat by Pulse Oximetry 98 12/15/22 16:49 Pain Scale Pain Intensity 5 Ordered Tests: Active Orders 24 hr Category Date Time Status TESTICLE [US] Stat Exams 12/15/22 17:01 Ordered UA W/RFX UR CULTURE Stat Lab 12/15/22 17:14 Completed Medication Summary Discontinued Medications Generic Name Dose Route Start Last Admin Trade Name Freq PRN Reason Stop Dose Admin Ketorolac Tromethamine 30 mg 12/15/22 17:02 12/15/22 17:10 Ketorolac Tromethamine 30 Mg/Ml Inj IM 12/15/22 17:03 30 mg STAT ONE Administration Ketorolac Tromethamine Confirm 12/15/22 17:07 Ketorolac Tromethamine 30 Mg/Ml Inj Administered 12/15/22 17:08 Dose 30 mg .ROUTE .STK-MED ONE Lab/Rad Data: Laboratory Results 12/15/22 Range/Units 17:14 Urine Color Yellow (Yellow) Urine Appearance Clear (Clear) Urine pH 6.5 (4.6-8.0) Ur Specific [place] 1.020 (1.005-1.030) Urine Protein Negative (Negative) Urine Glucose (UA) Negative (Negative) mg/dL Urine Ketones Negative (Negative) Urine Blood Negative (Negative) Urine Nitrite Negative (Negative) Urine Bilirubin Negative (Negative) Urine Urobilinogen 1.0 A (0.2) mg/dL Ur Leukocyte Esterase Negative (Negative) U Hyaline Cast (Auto) NONE SEEN (0-2) /LPF Urine Microscopic RBC 0-2 (0-5) /HPF Urine Microscopic WBC 0-2 (0-5) /HPF Ur Epithelial Cells None Seen (None Seen) /HPF Urine Bacteria None Seen (None Seen) /HPF Urine Culture Reflexed NO (NO) <MILLY COOPER - Last Filed: 12/15/22 17:43> - Progress Progress: improved <MARY AMIN - Last Filed: 12/15/22 18:49> - Progress Progress Note: 12/15/22 17:46 22-year-old is evaluated for sudden onset left scrotal/testicular pain since 11 AM today when he woke up. Dull aching to sharp, moderate intensity, more with standing/ambulation and better with resting. Denies any history of STD, and urinary complaints. No history of any hernias, groin pain/swelling. Has tenderness left testicle with no obvious swelling, can easily get above the cord. Lie seems normal. No scrotal swelling rash. Given Toradol for symptomatic relief. Urinalysis negative for UTI. GC chlamydia is pending. Will obtain ultrasound testicles to rule out torsion. (MILLY COOPER) <MILLY COOPER - Last Filed: 12/15/22 17:43> - Departure Departure Disposition: Home Critical Care Time: No <ELOISAMARY - Last Filed: 12/15/22 18:49> - Departure Clinical Impression: Epididymitis Condition: Stable Referrals: DICK MULLINS MD [Primary Care Provider] - Follow up/PCP as directed Instructions: Epididymitis (DC) Prescriptions: Doxycycline Hyclate 100 mg [Vibramycin 100 MG] 100 mg PO BID 20 Days #20 tab
[2022-12-15 18:07] VITALS: BP 154/94
[2022-12-15] MEDS ORDERED: Rocephin 1000 MG INJ IM ONE (18:50)
[2022-12-15] MEDS ORDERED: Rocephin 1000 MG INJ ONE (18:54)
[2022-12-15 19:01] VITALS: PULSE 96
[2022-12-15 19:17] LABS: CHLAMYDIA DNA NOT DETECTED (NEGATIVE); GC DNA Probe NOT DETECTED (NEGATIVE)
--- NOTE | 2022-12-18 10:14 | XRAY ---
Indication: Left scrotal pain. Two-dimensional testicular sonogram performed. Comparison: None Both testicles are homogeneous in echogenicity with normal color perfusion. Right testicle measures 4.2 x 2.4 x 2.6 cm and the left measures 4.3 x 2.2 x 2.7 cm. Left and right epididymis are sonographically unremarkable. No suspicious extratesticular mass or hydrocele. Impression: Negative testicular sonogram. Comment: Preliminary report was given.
== END 2022-12-15 19:11 | disposition home or self-care (01) ==
LOC: ED 16:38
DX: N45.1 Epididymitis (principal); N50.812 Left testicular pain; Z79.899 Other long term (current) drug therapy
CPT/HCPCS: 76870; 81001; 87491; 87591; 96372; 99283; J0696; J1885

== ENCOUNTER 2023-01-25 17:19 | Emergency (ER) | payer MEDICAID ==
[2023-01-25 17:51] VITALS: BP 172/95; PULSE 97; O2SAT 100
--- NOTE | 2023-01-25 17:52 | ERPHSYRPT ---
- History of Present Illness Source: patient Exam Limitations: no limitations Patient Subjective Stated Complaint: pt here for a fall, he states he slipped on floor at work today, co pain to left knee Triage Nursing Assessment: pt alert, walked in, resp easy, skin w/d/p, no bruising or abrsions to left knee Physician History: 22 yo wm cc of L knee pain after falling at 1330 while working at [employer]. Pain is 3/10 and worse w weight bearing. He denies other injuries at this time. Method of Injury: fell Occurred: other (1330) Quality: constant Severity of Pain-Max: moderate Severity of Pain-Current: mild Lower Extremities Pain: knee: left Modifying Factors: Improves With: movement Associated Symptoms: none Allergies/Adverse Reactions: No Known Drug Allergies Allergy (Verified 01/25/23 17:30) Home Medications: Trazodone HCl 100 mg PO HS 04/29/22 [History] Hx Tetanus, Diphtheria Vaccination/Date Given: Yes Hx Influenza Vaccination/Date Given: Yes Hx Pneumococcal Vaccination/Date Given: No Immunizations Up to Date: Yes Travel Risk - International Travel Have you traveled outside of the country in past 3 weeks: No - Coronavirus Screening Are you exhibiting any of the following symptoms?: No - Vaccine Status Have you recieved a Covid-19 vaccination: Yes [facility] [employer] Lpn: Moderna - Vaccination Dates Date of 2cond Vaccination (if applicable): 2020 - Review of Systems Constitutional: No Symptoms Eyes: No Symptoms Ears, Nose, & Throat: No Symptoms Respiratory: No Symptoms Cardiac: No Symptoms Abdominal/Gastrointestinal: No Symptoms Genitourinary Symptoms: No Symptoms Skin: No Symptoms Neurological: No Symptoms Psychological: No Symptoms Endocrine: No Symptoms Hematologic/Lymphatic: No Symptoms Immunological/Allergic: No Symptoms - Past Medical History Pertinent Past Medical History: Yes Neurological History: No Pertinent History ENT History: No Pertinent History Cardiac History: No Pertinent History Respiratory History: Sleep Apnea Endocrine Medical History: Other Musculoskeletal History: No Pertinent History GI Medical History: No Pertinent History History: No Pertinent History Psycho-Social History: Depression Male Reproductive Disorders: No Pertinent History - Past Surgical History Past Surgical History: Yes Neuro Surgical History: No Pertinent History Cardiac: No Pertinent History Respiratory: No Pertinent History Gastrointestinal: No Pertinent History Genitourinary: No Pertinent History Musculoskeletal: No Pertinent History Male Surgical History: No Pertinent History Other Surgical History: tendon repair in right pinky - Social History Smoking Status: Never smoker Exposure to second hand smoke: No Drug Use: none Patient Lives Alone: No Significant Family History: no pertinent family hx - Nursing Vital Signs Nursing Vital Signs: Initial Vital Signs Pulse Rate 100 H 01/25/23 17:46 Respiratory Rate 18 01/25/23 17:46 Blood Pressure 171/95 01/25/23 17:46 O2 Sat by Pulse Oximetry 99 01/25/23 17:46 Pain Scale Pain Intensity 3 BP 171/95 Hypertensive/O2 sat 99/Pulse 100 borderline tachy - Physical Exam General Appearance: no apparent distress Eyes, Ears, Nose, Throat Exam: normal ENT inspection, TMs normal, pharynx normal, moist mucous membranes Neck Exam: normal inspection, non-tender, supple, full range of motion, No Brudzinski, No Kernig's, No meningismus Cardiovascular/Respiratory Exam: chest non-tender, normal breath sounds, regular rate/rhythm, heart sounds normal Gastrointestinal/Abdominal Exam: non-tender, soft Back Exam: normal inspection, No CVA tenderness, No vertebral tenderness Hips Exam: bilateral: non-tender, normal inspection, normal range of motion, no evidence of injury Legs Exam: bilateral leg: non-tender, normal inspection, normal range of motion, no evidence of injury Knees Exam: left knee: other (L knee-mild TTP anteriorly and medially/No ecchymosis/No instability/Good pedal pulse, distal sensation, and capillary return) Ankle Exam: bilateral ankle: non-tender, normal inspection, normal range of motion, no evidence of injury Foot Exam: bilateral foot: non-tender, normal inspection, normal range of motion, no evidence of injury Neuro/Tendon Exam: normal sensation, normal motor functions, normal tendon functions, responds to pain, no evidence tendon injury, No motor deficit, No sensory deficit Mental Status Exam: alert, oriented x 3, cooperative Skin Exam: normal color, warm, dry - Course Nursing assessment & vital signs reviewed: Yes - Radiology Exams Knee X-ray Interpretation: Interpreted by me (L knee neg per ER read) Ordered Tests: Active Orders 24 hr Category Date Time Status Roque Bandage Application -[facility] STAT Care 01/25/23 17:56 Completed KNEE (3 VIEWS) Stat Exams 01/25/23 17:36 Taken - Progress Progress Note: 01/25/23 17:59 Nursing note and vital signs reviewed No food or housing insecurities noted Pt is a full code Pt refused pain meds during entire Roque wrap L knee per nursing/NVI XR interpreted by ER physician and results shared w pt Counseled pt/family regarding: diagnosis, need for follow-up, rad results - Departure Departure Disposition: Home Clinical Impression: Contusion of left knee, Hypertension Condition: Stable Critical Care Time: No Referrals: DICK MULLINS MD [Primary Care Provider] - Follow up/PCP as directed Instructions: Knee Sprain (DC), Knee Pain (DC) Additional Instructions: Ice for 12-24 hours Roque wrap for 3-4 days Motrin/Tylenol for pain Weight bearing as tolerated Watch your blood pressure Follow up with your family MD or orthopedic clinic for continued pain
--- NOTE | 2023-01-25 20:01 | XRAY ---
Indication: Pain following fall. Comparison: None 3 view left knee obtained. No bony, articular, or soft tissue abnormalities.
== END 2023-01-25 18:23 | disposition home or self-care (01) ==
LOC: ED 17:19
DX: S80.02XA Contusion of left knee, initial encounter (principal); W01.0XXA Fall on same level from slipping, tripping and stumbling without subsequent striking against object, initial encounter; Y92.511 Restaurant or cafe as the place of occurrence of the external cause; Y99.0 Civilian activity done for income or pay; I10 Essential (primary) hypertension; M25.562 Pain in left knee; Z79.899 Other long term (current) drug therapy
CPT/HCPCS: 73562; 99283